=== PATIENT | female | born 1935 | race Two or more races ===

== ENCOUNTER 2018-01-20 21:30 | Inpatient (IN) | payer OTHER ==
[~2018-01-20] VITALS: Ht 160 cm; Wt 56.2 kg
[2018-01-20] MEDS ORDERED: NOREPINEPHRINE 8 MG/250ML KIT 250 ML IV ONE (21:35)
[2018-01-20] MEDS ORDERED: SODIUM CHLORIDE 0.9% 1,000 ML IVB ONE (22:03)
[2018-01-20 22:12] LABS: Mean Corpuscular Hgb Conc. 30.6 g/dL (32.0-36.0)
[2018-01-20 22:14] LABS: Hematocrit 23.9 % (36.0-46.0); Hemoglobin 7.3 g/dL (12.2-16.2); Mean Corpuscular Hemoglobin 30.3 pg (28.0-32.0); Mean Corpuscular Volume 98.9 fL (80.0-100.0); Platelet Count (auto) 68 10^3/uL (140-450); Red Blood Cells 2.42 10^6/uL (4.0-5.20); Red Cell Distribution Width 18.5 % (11.8-14.3); White Blood Cell 8.6 10^3/uL (4.4-10.8)
[2018-01-20 22:17] LABS: Band Neutrophils % (manual) 0; Basophils % (manual) 0 (0.0-2.0); Blast Cells 0; Eosinophils % (manual) 0 (0-7); Myelocytes % 0; Promyelocytes % 0; Reactive Lymphocytes 0
[2018-01-20 22:34] LABS: INR 1.32 (0.9-1.15); Partial Thromboplastin Time 29.4 sec (23.78-33.04); Prothrombin Time 13.9 sec (9.27-12.13)
[2018-01-20 22:36] LABS: Lymphocytes % (manual) 23 (10.0-50.0); Metamyelocytes % 1; Monocytes % (manual) 2 (0-12)
[2018-01-20] MEDS: MIDAZOLAM DRIP 50 mg/50mL 50 ML IV SCH (23:15)
[2018-01-20] MEDS ORDERED: SODIUM BICARBONATE 8.4 % INJ 50ML VIAL IV ONE (23:15)
[2018-01-20] MEDS ORDERED: MIDAZOLAM DRIP 50 mg/50mL 50 ML IV ONE (23:16)
[2018-01-20 23:22] LABS: Albumin 1.6 g/dL (3.4-5.0); Calcium 8.5 mg/dL (8.5-10.1); Potassium 5.4 mmol/L (3.5-5.1)
[2018-01-20 23:26] LABS: BUN/Creatinine Ratio 15.2
[2018-01-20 23:32] LABS: Bilirubin, Total 0.4 mg/dL (0.2-1.0); Total Protein 5.5 g/dL (6.4-8.2)
[2018-01-21] VITALS (23 sets, daily range): BP systolic 76–131; BP diastolic 41–83
[2018-01-21] MEDS: NOREPINEPHRINE 8 MG/250ML KIT 250 ML IV SCH (00:04)
[2018-01-21] MEDS ORDERED: cefTRIAXone 1GM/10ml IVPUSH 10 ML IV ONE (00:15)
[2018-01-21] MEDS ORDERED: VANCOMYCIN 1GM/250ML 250 ML IV ONE (01:00)
[2018-01-21] MEDS ORDERED: SODIUM CHLORIDE 0.9% 1,000 ML IV ONE ×2 (02:45)
[2018-01-21] MEDS ORDERED: VANCOMYCIN PER PHARMACY 0 MG IV SCH (03:30)
[2018-01-21] MEDS ORDERED: ONDANSETRON HCL 4 MG/2 ML VIAL IV PRN (03:30)
[2018-01-21] MEDS ORDERED: ACETAMINOPHEN 650 mg PER 20 mL UD GT PRN (03:30)
[2018-01-21] MEDS ORDERED: LORazepam 2MG/ML-1ML VIAL IV PRN (03:30)
[2018-01-21 04:24] LABS: Urine Bacteria NONE SEEN /hpf (None Seen); Urine Blood 3+ /uL (Negative); Urine Budding Yeast LOADED /hpf (None Seen); Urine Specific Gravity 1.016 (1.001-1.035); Urine WBC 17 /hpf (0 - 5); Urine WBC Clumps PRESENT /hpf (None Seen)
[2018-01-21 04:29] LABS: Albumin 1.7 g/dL (3.4-5.0); BUN/Creatinine Ratio 16.3; Calcium 7.9 mg/dL (8.5-10.1); Potassium 5.4 mmol/L (3.5-5.1)
[2018-01-21 04:38] LABS: Bilirubin, Total 0.4 mg/dL (0.2-1.0)
[2018-01-21] MEDS: MIDAZOLAM DRIP 50 mg/50mL 50 ML IV SCH ×2 (05:02→16:18)
[2018-01-21] MEDS: ENOXAPARIN SOD 30 MG/0.3 ML SYRINGE SC SCH (06:54)
[2018-01-21] MEDS ORDERED: FUROSEMIDE 20 MG/2 ML VIAL IV ONE (07:30)
[2018-01-21] MEDS: SODIUM BICARBONATE 50ML VIAL 50 ML in SOD CHL 0.45% 1,000 ML IV SCH (09:13)
[2018-01-21] MEDS: PANTOPRAZOLE 40 MG/10 ML VIAL IV SCH (09:13)
[2018-01-21] MEDS: PIPERACILLIN-TAZOB 2.25GM 50 ML IV SCH ×2 (10:13→17:39)
[2018-01-21 11:25] LABS: Basophils # (auto) 0 uL; Basophils % (auto) 0.1 % (0.0-2.0); Eosinophils # (auto) 0 uL; Hematocrit 36.3 % (36.0-46.0); Hemoglobin 11.6 g/dL (12.2-16.2); Lymphocytes # (auto) 1.5 uL; Lymphocytes % (auto) 9.4 % (10.0-50.0); Mean Corpuscular Hemoglobin 27.8 pg (28.0-32.0); Mean Corpuscular Hgb Conc. 31.9 g/dL (32.0-36.0); Mean Corpuscular Volume 87.1 fL (80.0-100.0); Monocytes # (auto) 0.4 uL; Monocytes % (auto) 2.4 % (0.0-12.0); Neutrophils # (auto) 14.1 uL; Neutrophils % (auto) 88.1 % (37.0-80.0); Nucleated Red Blood Cells % 0.1 %; Platelet Count (auto) 193 10^3/uL (140-450); Red Blood Cells 4.17 10^6/uL (4.0-5.20); Red Cell Distribution Width 18.4 % (11.8-14.3)
[2018-01-21] MEDS ORDERED: ASPirin-EC 81 mg tab PO ONE (11:30)
[2018-01-21 11:41] LABS: % Iron Saturation 37.3 % (15-50)
[2018-01-21] MEDS: InsuLIN REG 1unit/0.01ml Soln (100units/ml) SC SCH ×2 (11:52→17:32)
[2018-01-21] MEDS: ACCU-CHEK COMFORT CURVE STRIP VI SCH ×2 (12:25→17:30)
[2018-01-21 12:52] LABS: Lactic Acid w/Reflex 2.3 mmol/L (0.4-2.0)
[2018-01-21] MEDS ORDERED: EPINEPHrine HCL 1 MG/10 ML SYRG IV ONE ×2 (13:13→17:40)
[2018-01-21] MEDS ORDERED: SODIUM BICARBONATE 8.4% INJ 50ML SYRINGE IV ONE ×2 (13:13→17:40)
[2018-01-21] MEDS ORDERED: CALCIUM CHLOR(10%) 100MG/ML 10ML SYRINGE IV ONE ×2 (13:13→17:40)
[2018-01-21] MEDS ORDERED: cefTRIAXone 1GM/10ml IVPUSH 10 ML IV SCH (22:00)
[2018-01-21] MEDS: ATORVASTATIN 20 MG TAB PO SCH (22:00)
[2018-01-22] VITALS (13 sets, daily range): BP systolic 91–137; BP diastolic 47–78
[2018-01-22] MEDS: PIPERACILLIN-TAZOB 2.25GM 50 ML IV SCH ×3 (02:10→18:36)
[2018-01-22] MEDS: MIDAZOLAM DRIP 50 mg/50mL 50 ML IV SCH (04:38)
[2018-01-22] MEDS: InsuLIN REG 1unit/0.01ml Soln (100units/ml) SC SCH ×5 (05:33→23:45)
[2018-01-22] MEDS: ENOXAPARIN SOD 30 MG/0.3 ML SYRINGE SC SCH (05:33)
[2018-01-22] MEDS: ACCU-CHEK COMFORT CURVE STRIP VI SCH ×5 (05:34→23:45)
[2018-01-22] MEDS: SODIUM BICARBONATE 50ML VIAL 50 ML in SOD CHL 0.45% 1,000 ML IV SCH ×3 (05:34→22:54)
[2018-01-22 05:52] LABS: Basophils # (auto) 0.1 uL; Basophils % (auto) 0.6 % (0.0-2.0); Eosinophils # (auto) 0 uL; Hematocrit 35.6 % (36.0-46.0); Hemoglobin 11.5 g/dL (12.2-16.2); Lymphocytes # (auto) 1.8 uL; Lymphocytes % (auto) 13.2 % (10.0-50.0); Mean Corpuscular Hemoglobin 27.8 pg (28.0-32.0); Mean Corpuscular Hgb Conc. 32.3 g/dL (32.0-36.0); Mean Corpuscular Volume 85.9 fL (80.0-100.0); Monocytes # (auto) 0.4 uL; Neutrophils # (auto) 11.5 uL; Neutrophils % (auto) 83.2 % (37.0-80.0); Nucleated Red Blood Cells % 0.1 %; Platelet Count (auto) 166 10^3/uL (140-450); Red Blood Cells 4.14 10^6/uL (4.0-5.20); Red Cell Distribution Width 18.5 % (11.8-14.3); White Blood Cell 13.8 10^3/uL (4.4-10.8)
[2018-01-22 06:05] LABS: INR 1.27 (0.9-1.15); Prothrombin Time 13.4 sec (9.27-12.13)
[2018-01-22 06:30] LABS: Albumin 1.7 g/dL (3.4-5.0); BUN/Creatinine Ratio 15.6; Bilirubin, Total 0.5 mg/dL (0.2-1.0); Calcium 7.2 mg/dL (8.5-10.1); Magnesium 1.8 mg/dL (1.6-2.6); Phosphorus 3.4 mg/dL (2.5-4.90); Potassium 4.3 mmol/L (3.5-5.1); Total Protein 5.6 g/dL (6.4-8.2)
[2018-01-22] MEDS: NOREPINEPHRINE 8 MG/250ML KIT 250 ML IV SCH (08:01)
[2018-01-22] MEDS ORDERED: MAGNESIUM SULFATE 1GM/100ML 100 ML IV ONE (10:00)
[2018-01-22] MEDS: VANCOMYCIN 750 MG in D5W 5% 250 ML IV SCH (10:22)
[2018-01-22 10:31] LABS: Hepatitis B Surface Antibody Negative
[2018-01-22] MEDS: ASPirin-EC 81 mg tab PO SCH (10:31)
[2018-01-22] MEDS: PANTOPRAZOLE 40 MG/10 ML VIAL IV SCH (10:49)
[2018-01-22 12:55] LABS: Hepatitis B Surface Antigen Negative (Negative)
[2018-01-22 13:03] LABS: Hepatitis C Antibody Negative (Negative)
[2018-01-22] MEDS: DEXTROSE (50%) 50ML SYRG IV PRN (18:41)
[2018-01-22] MEDS: ATORVASTATIN 20 MG TAB PO SCH (22:30)
[2018-01-23] VITALS (12 sets, daily range): BP systolic 91–137; BP diastolic 55–97
[2018-01-23] MEDS: PIPERACILLIN-TAZOB 2.25GM 50 ML IV SCH ×3 (01:36→20:10)
[2018-01-23] MEDS: DEXTROSE (50%) 50ML SYRG IV PRN (01:36)
[2018-01-23] MEDS: ACCU-CHEK COMFORT CURVE STRIP VI SCH ×3 (05:40→18:25)
[2018-01-23] MEDS: ENOXAPARIN SOD 30 MG/0.3 ML SYRINGE SC SCH (05:40)
[2018-01-23] MEDS: InsuLIN REG 1unit/0.01ml Soln (100units/ml) SC SCH ×3 (05:40→20:10)
[2018-01-23 07:31] LABS: Basophils # (auto) 0 uL; Basophils % (auto) 0.2 % (0.0-2.0); Eosinophils # (auto) 0.2 uL; Eosinophils % (auto) 1.7 % (0.0-7.0); Hematocrit 33.5 % (36.0-46.0); Hemoglobin 10.8 g/dL (12.2-16.2); Lymphocytes # (auto) 2.3 uL; Lymphocytes % (auto) 18.4 % (10.0-50.0); Mean Corpuscular Hemoglobin 27.7 pg (28.0-32.0); Mean Corpuscular Hgb Conc. 32.3 g/dL (32.0-36.0); Mean Corpuscular Volume 85.6 fL (80.0-100.0); Monocytes # (auto) 0.3 uL; Monocytes % (auto) 2.6 % (0.0-12.0); Neutrophils # (auto) 9.4 uL; Neutrophils % (auto) 77.1 % (37.0-80.0); Nucleated Red Blood Cells % 0.1 %; Platelet Count (auto) 135 10^3/uL (140-450); Red Blood Cells 3.92 10^6/uL (4.0-5.20); Red Cell Distribution Width 18.1 % (11.8-14.3); White Blood Cell 12.2 10^3/uL (4.4-10.8)
[2018-01-23 08:05] LABS: Albumin 1.6 g/dL (3.4-5.0); Bilirubin, Total 0.8 mg/dL (0.2-1.0); Calcium 6.8 mg/dL (8.5-10.1); Magnesium 1.9 mg/dL (1.6-2.6); Potassium 3.3 mmol/L (3.5-5.1); Total Protein 5.2 g/dL (6.4-8.2)
[2018-01-23] MEDS: ASPirin-EC 81 mg tab PO SCH (10:35)
[2018-01-23] MEDS: PANTOPRAZOLE 40 MG/10 ML VIAL IV SCH (10:35)
[2018-01-23] MEDS: FLUCONAZOLE 200MG/100ML 100 ML IV SCH (12:00)
[2018-01-23] MEDS ORDERED: POTASSIUM CHL 10% (20 MEQ/15ML) 15ml ORAL SOLN GT ONE (13:45)
[2018-01-23] MEDS: SODIUM BICARBONATE 50ML VIAL 50 ML in SOD CHL 0.45% 1,000 ML IV SCH (15:12)
[2018-01-23] MEDS: VANCOMYCIN 750 MG in D5W 5% 250 ML IV SCH (20:10)
[2018-01-23] MEDS: ATORVASTATIN 20 MG TAB PO SCH (21:56)
[2018-01-23] MEDS: MIDAZOLAM DRIP 50 mg/50mL 50 ML IV SCH (23:10)
[2018-01-24] VITALS (23 sets, daily range): BP systolic 104–151; BP diastolic 67–93
[2018-01-24] MEDS ORDERED: Fibersource Hn 1 Liter GT SCH
[2018-01-24] MEDS ORDERED: FUROSEMIDE 20 MG/2 ML VIAL IV ONE (03:00)
[2018-01-24] MEDS ORDERED: ALBUMIN 25% 50 ML IV ONE (03:00)
[2018-01-24] MEDS ORDERED: ALBUMIN 25% 100 ML IV ONE ×2 (03:17→04:00)
[2018-01-24] MEDS: PIPERACILLIN-TAZOB 2.25GM 50 ML IV SCH ×3 (04:00→22:10)
[2018-01-24] MEDS: ENOXAPARIN SOD 30 MG/0.3 ML SYRINGE SC SCH (06:00)
[2018-01-24] MEDS: ACCU-CHEK COMFORT CURVE STRIP VI SCH ×4 (06:00→18:25)
[2018-01-24] MEDS: InsuLIN REG 1unit/0.01ml Soln (100units/ml) SC SCH ×4 (06:00→18:00)
[2018-01-24] MEDS: SODIUM BICARBONATE 50ML VIAL 50 ML in SOD CHL 0.45% 1,000 ML IV SCH (07:30)
[2018-01-24 07:49] LABS: Albumin 2.2 g/dL (3.4-5.0); BUN/Creatinine Ratio 14.8; Bilirubin, Total 0.9 mg/dL (0.2-1.0); Calcium 6.8 mg/dL (8.5-10.1); Magnesium 1.8 mg/dL (1.6-2.6); Potassium 3.2 mmol/L (3.5-5.1); Total Protein 5.3 g/dL (6.4-8.2)
[2018-01-24 07:58] LABS: Basophils # (auto) 0 uL; Basophils % (auto) 0.3 % (0.0-2.0); Eosinophils # (auto) 0.3 uL; Hematocrit 30.5 % (36.0-46.0); Hemoglobin 10.2 g/dL (12.2-16.2); Lymphocytes # (auto) 2.2 uL; Lymphocytes % (auto) 20.2 % (10.0-50.0); Mean Corpuscular Hemoglobin 28.9 pg (28.0-32.0); Mean Corpuscular Hgb Conc. 33.5 g/dL (32.0-36.0); Mean Corpuscular Volume 86.3 fL (80.0-100.0); Monocytes # (auto) 0.4 uL; Monocytes % (auto) 3.3 % (0.0-12.0); Neutrophils # (auto) 7.9 uL; Neutrophils % (auto) 73.2 % (37.0-80.0); Nucleated Red Blood Cells % 0.1 %; Platelet Count (auto) 122 10^3/uL (140-450); Red Blood Cells 3.54 10^6/uL (4.0-5.20); White Blood Cell 10.8 10^3/uL (4.4-10.8)
[2018-01-24] MEDS ORDERED: POTASSIUM CHL 10% (20 MEQ/15ML) 15ml ORAL SOLN GT ONE ×2 (08:30→13:00)
[2018-01-24] MEDS: PANTOPRAZOLE 40 MG/10 ML VIAL IV SCH (10:10)
[2018-01-24] MEDS: ASPirin-EC 81 mg tab PO SCH (10:29)
[2018-01-24] MEDS: FLUCONAZOLE 200MG/100ML 100 ML IV SCH (11:48)
[2018-01-24] MEDS ORDERED: VANCOMYCIN 750 MG in D5W 5% 250 ML IV SCH (17:00)
[2018-01-24] MEDS: ATORVASTATIN 20 MG TAB PO SCH (22:10)
[2018-01-24] MEDS: MIDAZOLAM DRIP 50 mg/50mL 50 ML IV SCH (23:10)
[2018-01-25] VITALS (91 sets, daily range): BP systolic 97–161; BP diastolic 51–98
[2018-01-25] MEDS: ACCU-CHEK COMFORT CURVE STRIP VI SCH ×4 (00:30→17:25)
[2018-01-25] MEDS: InsuLIN REG 1unit/0.01ml Soln (100units/ml) SC SCH ×4 (00:30→17:25)
[2018-01-25] MEDS: PIPERACILLIN-TAZOB 2.25GM 50 ML IV SCH ×3 (04:15→20:00)
[2018-01-25 04:17] LABS: Basophils # (auto) 0 uL; Basophils % (auto) 0.4 % (0.0-2.0); Eosinophils # (auto) 0.4 uL; Eosinophils % (auto) 3.7 % (0.0-7.0); Hematocrit 33.4 % (36.0-46.0); Lymphocytes # (auto) 2.8 uL; Lymphocytes % (auto) 23.2 % (10.0-50.0); Mean Corpuscular Hemoglobin 28.9 pg (28.0-32.0); Mean Corpuscular Hgb Conc. 32.9 g/dL (32.0-36.0); Mean Corpuscular Volume 87.8 fL (80.0-100.0); Monocytes # (auto) 0.5 uL; Monocytes % (auto) 4.5 % (0.0-12.0); Neutrophils # (auto) 8.1 uL; Neutrophils % (auto) 68.2 % (37.0-80.0); Nucleated Red Blood Cells % 0.2 %; Platelet Count (auto) 136 10^3/uL (140-450); Red Cell Distribution Width 17.8 % (11.8-14.3)
[2018-01-25 04:25] LABS: Calcium 6.8 mg/dL (8.5-10.1); Potassium 4.4 mmol/L (3.5-5.1)
[2018-01-25] MEDS: ENOXAPARIN SOD 30 MG/0.3 ML SYRINGE SC SCH (06:00)
[2018-01-25] MEDS ORDERED: FUROSEMIDE 20 MG/2 ML VIAL IV SCH (10:00)
[2018-01-25] MEDS: HEPARIN SODIUM (PORCINE) 5000 UNITS/ML 1ML VIAL SC SCH ×2 (10:09→22:00)
[2018-01-25] MEDS: PANTOPRAZOLE 40 MG/10 ML VIAL IV SCH (10:09)
[2018-01-25] MEDS: ASPirin-EC 81 mg tab PO SCH (10:13)
[2018-01-25] MEDS ORDERED: MAGNESIUM SULFATE 1GM/100ML 100 ML IV ONE (11:00)
[2018-01-25] MEDS: FLUCONAZOLE 200MG/100ML 100 ML IV SCH (11:00)
[2018-01-25] MEDS ORDERED: LINEZOLID 600MG/300ML 300 ML IV ONE (11:01)
[2018-01-25] MEDS ORDERED: SODIUM CHLORIDE 0.9% 1,000 ML IV SCH (11:15)
[2018-01-25] MEDS ORDERED: FLUCONAZOLE 100 MG TAB PO ONE (11:25)
[2018-01-25] MEDS: LINEZOLID 600MG/300ML 300 ML IV SCH ×2 (12:12→22:05)
[2018-01-25] MEDS: ATORVASTATIN 20 MG TAB PO SCH (22:00)
[2018-01-25] MEDS ORDERED: LINEZOLID 600MG/300ML 300 ML IV SCH (22:00)
== END 2018-01-25 23:41 | disposition short-term general hospital (02) | DRG 870 ==
LOC: ER 21:30 → EDBD 21:30 → TELE 21:31 → ICU WEST 01-24 22:01
PROVIDERS: ADMIT Nurse Practitioner Family; ATTEND Internal Medicine
PROC: 5A1955Z Respiratory Ventilation, Greater than 96 Consecutive Hours (ICD-10-PCS; principal; 2018-01-20)
PROC: 0BH17EZ Insertion of Endotracheal Airway into Trachea, Via Natural or Artificial Opening (ICD-10-PCS; 2018-01-20)
PROC: 5A12012 Performance of Cardiac Output, Single, Manual (ICD-10-PCS; 2018-01-20)
PROC: 30233N1 Transfusion of Nonautologous Red Blood Cells into Peripheral Vein, Percutaneous Approach (ICD-10-PCS; 2018-01-20)
PROC: 02HV33Z Insertion of Infusion Device into Superior Vena Cava, Percutaneous Approach (ICD-10-PCS; 2018-01-21)
DX: A41.9 Sepsis, unspecified organism (principal); L89.154 Pressure ulcer of sacral region, stage 4; I46.9 Cardiac arrest, cause unspecified; E43 Unspecified severe protein-calorie malnutrition; J96.00 Acute respiratory failure, unspecified whether with hypoxia or hypercapnia; R65.21 Severe sepsis with septic shock; J18.9 Pneumonia, unspecified organism; I21.4 Non-ST elevation (NSTEMI) myocardial infarction; N17.0 Acute kidney failure with tubular necrosis; I63.9 Cerebral infarction, unspecified; K72.00 Acute and subacute hepatic failure without coma; G93.5 Compression of brain; E87.0 Hyperosmolality and hypernatremia; G93.1 Anoxic brain damage, not elsewhere classified; I13.0 Hypertensive heart and chronic kidney disease with heart failure and stage 1 through stage 4 chronic kidney disease, or unspecified chronic kidney disease; B37.49 Other urogenital candidiasis; E87.5 Hyperkalemia; F17.200 Nicotine dependence, unspecified, uncomplicated; G89.4 Chronic pain syndrome; H57.02 Anisocoria; I25.10 Atherosclerotic heart disease of native coronary artery without angina pectoris; I48.91 Unspecified atrial fibrillation; D63.8 Anemia in other chronic diseases classified elsewhere; E11.22 Type 2 diabetes mellitus with diabetic chronic kidney disease; E11.65 Type 2 diabetes mellitus with hyperglycemia; I50.9 Heart failure, unspecified; N18.9 Chronic kidney disease, unspecified; Z79.82 Long term (current) use of aspirin; Z79.899 Other long term (current) drug therapy; Z82.49 Family history of ischemic heart disease and other diseases of the circulatory system; Z87.440 Personal history of urinary (tract) infections; Z68.21 Body mass index [BMI] 21.0-21.9, adult
CPT/HCPCS: 36415; 36430; 36600; 51702; 70450; 71045; 71250; 74176; 80048; 80053; 80061; 80202; 81001; 82270; 82805; 82962; 83036; 83540; 83550; 83605; 83735; 83880; 84100; 84484; 85007; 85025; 85027; 85379; 85610; 85730; 86706; 86803; 86850; 86900; 86901; 86920; 87040; 87070; 87077; 87081; 87086; 87186; 87205; 87340; 87493; 92950; 93005; 93306; 94002; 94003; 95819; 96361; 96365; 96375; 99291; C9113; J1450; J1815; J2250; J2543; J7060; P9047